=== PATIENT | female | born 1975 | race Caucasian/White ===

== ENCOUNTER 2019-07-30 06:00 | Outpatient (RCR) | payer OTHER, SELFPAY | END 2019-08-29 00:01 | LOC: SST 06:00 | PROVIDERS: Family Provider Internal Medicine; Visit Provider Physical Medicine & Rehabilitation | DX: R13.10 Dysphagia, unspecified (principal); R20.0 Anesthesia of skin; G54.0 Brachial plexus disorders; G56.02 Carpal tunnel syndrome, left upper limb; S13.4XXD Sprain of ligaments of cervical spine, subsequent encounter; X58.XXXD Exposure to other specified factors, subsequent encounter | CPT/HCPCS: 92507 ×2 ==

== ENCOUNTER 2019-07-30 06:00 | Outpatient (RCR) | payer OTHER, SELFPAY | END 2019-08-29 00:01 | LOC: SPT 06:00 | PROVIDERS: Family Provider Internal Medicine; Visit Provider Family Medicine | DX: S16.1XXD Strain of muscle, fascia and tendon at neck level, subsequent encounter (principal); X58.XXXD Exposure to other specified factors, subsequent encounter | CPT/HCPCS: 97110 ×5; 97112 ×4; 97140 ==

== ENCOUNTER 2019-08-30 06:00 | Outpatient (RCR) | payer OTHER, SELFPAY | END 2019-09-29 23:59 | disposition home or self-care (01) | LOC: SPT 06:00 | PROVIDERS: Family Provider Family Medicine; PCP Family Medicine; Visit Provider Physical Medicine & Rehabilitation | DX: S16.1XXD Strain of muscle, fascia and tendon at neck level, subsequent encounter (principal); X58.XXXD Exposure to other specified factors, subsequent encounter | CPT/HCPCS: 97110; 97140 ==

== ENCOUNTER → 2019-11-23 08:46 | Outpatient (BNVA) | payer OTHER, SELFPAY | PROVIDERS: Family Provider Family Medicine; PCP Family Medicine; Visit Provider Otolaryngology | DX: R68.89 Other general symptoms and signs (principal); R51 Headache | CPT/HCPCS: 99203; 99214 ==

== ENCOUNTER → 2019-12-15 09:02 | Outpatient (BNVA) | payer SELFPAY | PROVIDERS: Family Provider Family Medicine; PCP Family Medicine; Visit Provider Nurse Practitioner | DX: R50.9 Fever, unspecified (principal) | CPT/HCPCS: 85025; 87400 ==

== ENCOUNTER → 2020-02-05 15:37 | Outpatient (BNVA) | payer OTHER, SELFPAY | PROVIDERS: Family Provider Family Medicine; PCP Family Medicine; Visit Provider Nurse Practitioner Family | DX: N20.0 Calculus of kidney (principal); N30.20 Other chronic cystitis without hematuria | CPT/HCPCS: 81001 ==

== ENCOUNTER 2020-03-28 | Outpatient (CLI) | payer OTHER, SELFPAY | END 2020-03-28 23:00 | disposition home or self-care (01) | LOC: RAD 04-22 08:58 | PROVIDERS: Family Provider Family Medicine; PCP Family Medicine; Visit Provider Nurse Practitioner Family | DX: N20.0 Calculus of kidney (principal) | CPT/HCPCS: 81001 ==

== ENCOUNTER → 2020-04-23 16:15 | Outpatient (BNVA) | payer OTHER, SELFPAY | PROVIDERS: Family Provider Family Medicine; PCP Family Medicine; Referring Provider Dermatology; Visit Provider Dermatology | DX: L98.8 Other specified disorders of the skin and subcutaneous tissue (principal); Z41.1 Encounter for cosmetic surgery | CPT/HCPCS: J0585 ==

== ENCOUNTER 2023-06-04 06:28 | Outpatient (CLI) | payer OTHER, SELFPAY ==
--- NOTE | 2023-06-04 06:40 | CT_ITS ---
WS: [id number] CT HEAD TECHNIQUE: Noncontrast CT of the head obtained from the skullbase to the vertex. CLINICAL INFORMATION: VISUAL DISTURBANCE COMPARISON: None. DLP: 1000.[address] scans at [facility] use at least one of these dose optimization techniques: automated e xposure control; mA and/or kV adjustment per patient size (includes targeted exams where dose is matc hed to clinical indication); or iterative reconstruction. FINDINGS: No evidence of intracranial hemorrhage or mass effect. Ventricular system and basal cisterns are gordon nt. No extra-axial fluid collections. No evidence of mass or mass effect. Normal high-white different iation. Paranasal sinuses and mastoid air cells are well aerated. .Normal visualized soft tissues. IMPRESSION: 1. No evidence of intracranial hemorrhage or mass effect. 2. Normal high-white differentiation. 3. No acute intracranial findings.
== END 2023-06-04 06:29 | disposition home or self-care (01) ==
PROVIDERS: PCP Nurse Practitioner Family; Visit Provider Nurse Practitioner Family
DX: H53.9 Unspecified visual disturbance (principal)
CPT/HCPCS: 70450

== ENCOUNTER → 2024-09-14 14:11 | Outpatient (BNVA) | payer OTHER, SELFPAY | PROVIDERS: PCP Nurse Practitioner Family; Visit Provider Nurse Practitioner Women's Health | DX: Z01.419 Encounter for gynecological examination (general) (routine) without abnormal findings (principal) | CPT/HCPCS: 87624 ==

== ENCOUNTER → 2024-10-12 11:10 | Outpatient (BNVA) | payer OTHER, SELFPAY | PROVIDERS: PCP Nurse Practitioner Family; Visit Provider Nurse Practitioner Women's Health | DX: D21.9 Benign neoplasm of connective and other soft tissue, unspecified (principal); N85.00 Endometrial hyperplasia, unspecified | CPT/HCPCS: 76830 ==